=== PATIENT | female | born 1995 | race Caucasian/White ===

== ENCOUNTER 2017-01-04 18:21 | Emergency (ER) | payer MEDICAID ==
[2017-01-04 18:35] VITALS: BP 125/83
[2017-01-04] MEDS ORDERED: Lidocaine/EPINEPHrine/Tetracaine Soln 1 ML TOP ONE (19:28)
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
[2017-01-04] MEDS ORDERED: Ibuprofen 600 MG Tab PO ONE (20:23)
[2017-01-04] MEDS ORDERED: Lidocaine 1% 10 ML MDV INJECT ONE (20:24)
--- NOTE | 2017-01-06 17:59 | CR ---
Thoracic spine: AP and lateral views of the thoracic spine were obtained. Comparison: Vertebral body heights and disc spaces are preserved. Pedicles are intact. Paravertebral soft tissues are normal. No subluxation or fracture seen. Impression: 1. No abnormality is seen on two-view thoracic spine study. Diagnostic code #1
--- NOTE | 2017-01-06 17:59 | CT ---
Head CT Technique: Multiple axial sections were obtained through the brain. Intravenous contrast not utilized. Comparison: No previous intracranial imaging. Findings: Ventricles along with basal cisterns and sulci over the convexities are within normal limits for the patient's age. No abnormal parenchymal densities are seen. No evidence of intracranial hemorrhage. No midline shift or mass effect is seen. Bone window settings were reviewed which show no discrete calvarial abnormality. Visualized sinuses show a small retention cyst within the right maxillary sinus measuring 8 mm which is likely incidental. No acute calvarial abnormality is seen. Impression: 1. Small retention cyst within the right maxillary sinus which is felt to be incidental. 2. No acute intracranial abnormality is identified. Diagnostic code #2 I agree with preliminary report issued by [facility] ([facility] preliminary report dictated on 01/04/17, 9:27 PM Central Time)
--- NOTE | 2017-01-06 17:59 | CT ---
CT cervical spine Technique: Multiple axial sections through the cervical spine were obtained from above C1 inferiorly to the bottom of T2. Reconstructed sagittal and coronal images were reviewed. Comparison: No prior cervical spine imaging. Findings: Mastoid sinuses are clear. Middle ear cavities are clear. Posterior skull base is intact. Findings: Vertebral body heights and disc spaces are maintained. Vertebral bodies and posterior arches are intact. No fracture is seen. No bony central or bony neural foraminal stenosis is seen. No abnormal subluxation is seen on the reconstructed sagittal images. Impression: 1. No acute abnormality is identified on CT study of the cervical spine. Diagnostic code #1 Agree with preliminary report issued by [facility] ([facility] preliminary report dictated on 01/04/17, 9:26 PM Central Time)
== END 2017-01-04 21:38 | disposition home or self-care (01) ==
LOC: JD.ED 18:21
DX: S01.511A Laceration without foreign body of lip, initial encounter (principal); S80.12XA Contusion of left lower leg, initial encounter; S20.229A Contusion of unspecified back wall of thorax, initial encounter; K08.419 Partial loss of teeth due to trauma, unspecified class; Z91.030 Bee allergy status; Z79.899 Other long term (current) drug therapy; V19.9XXA Pedal cyclist (driver) (passenger) injured in unspecified traffic accident, initial encounter
CPT/HCPCS: 12011; 70450; 72070; 72125; 99285; A9270; 99284

== ENCOUNTER 2017-07-04 19:06 | Emergency (ER) | payer MEDICAID, OTHER ==
[2017-07-04 19:45] VITALS: BP 138/70
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
[2017-07-05] MEDS ORDERED: Acetaminophen/oxyCODONE 325-5 MG Tab PO ONE (00:09)
--- NOTE | 2017-07-05 14:23 | CR ---
Left hip: AP and frog leg lateral views of the left hip were obtained. Comparison: No previous hip exam. Joint space within the left hip is maintained. No fracture or other abnormality is identified. Impression: 1. Unremarkable two-view left hip exam. Diagnostic code #1 I agree with preliminary report issued by [facility] ([facility] report finalized on 07/05/17, 1:16 AM Central Time)
--- NOTE | 2017-07-05 14:23 | CR ---
Lumbar spine: AP, lateral and cone down lateral views centered to the lumbosacral junction were obtained. Comparison: No previous study. Vertebral body heights and disc spaces are maintained. Pedicles as well as transverse and spinous processes are intact. No subluxation or fracture is seen. Impression: 1. No abnormality is identified on three-view lumbar spine exam. Diagnostic code #1
--- NOTE | 2017-07-05 14:23 | CR ---
Pelvis: AP view of the pelvis was obtained. Comparison: No prior pelvis exam. Joint spaces within both hips are maintained. Sacroiliac joints are within normal limits. No fracture or other abnormality is seen. Impression: 1. Unremarkable AP pelvis exam. Diagnostic code #1 I agree with preliminary report issued by [facility] ([facility] report finalized on 07/05/17, 1:17 AM Central Time)
== END 2017-07-05 00:35 | disposition home or self-care (01) ==
LOC: JD.ED 19:06
DX: S39.012A Strain of muscle, fascia and tendon of lower back, initial encounter (principal); S70.02XA Contusion of left hip, initial encounter; S30.0XXA Contusion of lower back and pelvis, initial encounter; Z91.030 Bee allergy status; Z79.899 Other long term (current) drug therapy; W00.0XXA Fall on same level due to ice and snow, initial encounter
CPT/HCPCS: 72100; 72170; 73502; 99283; A9270

== ENCOUNTER 2024-11-10 12:54 | Inpatient (IN) | payer MEDICAID ==
[2024-11-10] MEDS ORDERED: Ondansetron 4 MG/2 ML SDV IVPUSH PRN (20:18)
[2024-11-10] MEDS ORDERED: Nalbuphine 10 MG/1 ML Vial IVPUSH PRN (20:18)
[2024-11-10] MEDS ORDERED: Sodium Chloride 0.9% 10 ML Syringe FLUSH PRN (20:18)
[2024-11-10] MEDS: Misoprostol 25 MCG (1/4 of 100 MCG) Tab VAG PRN (20:30)
[2024-11-10 20:49] LABS: BASOPHILS ABSOLUTE AUTO 0.0 K/mm3 (0.0-0.2); BASOPHILS PERCENT AUTO 0.2 % (0.0-1.0); EOSINOPHILS ABSOLUTE AUTO 0.2 K/mm3 (0.0-0.4); EOSINOPHILS PERCENT AUTO 1.5 % (0.0-6.0); IMMATURE GRAN ABSOLUTE AUTO 0.08 K/mm3 (0.00-0.05); IMMATURE GRAN PERCENT AUTO 0.7 % (0.0-0.4); LYMPHOCYTES ABSOLUTE AUTO 2.0 K/mm3 (1.0-4.8); LYMPHOCYTES PERCENT AUTO 18.1 % (24.0-44.0); MEAN PLATELET VOLUME 9.2 fl (9.4-12.3); MONOCYTES ABSOLUTE AUTO 0.6 K/mm3 (0.0-0.8); MONOCYTES PERCENT AUTO 5.6 % (0.0-8.0); NEUTROPHILS ABSOLUTE AUTO 8.1 K/mm3 (1.8-7.7); NEUTROPHILS PERCENT AUTO 73.9 % (41.0-71.0); NRBC ABSOLUTE 0.00 (0.00-0.02); NRBC PERCENT 0.0 % (0.0-0.2); PLATELET COUNT,PLT 193 K/mm3 (150-400); RED BLOOD CELL COUNT 3.64 M/mm3 (4.10-5.30); WHITE BLOOD CELL COUNT,WBC 10.98 K/mm3 (3.9-11.3)
[2024-11-10 21:08] LABS: ALANINE AMINOTRANSFERASE,ALT 11 U/L (14-59); ASPARTATE AMNIOTRANSFERASE,AST 12 U/L (15-37); BLOOD UREA NITROGEN,BUN 7 mg/dL (7-18); CREATININE 0.5 mg/dL (0.55-1.02); ESTIMATED GFR 131 mL/min (>60); LACTATE DEHYDROGENASE,LDH 178 U/L (81-234)
[2024-11-10 22:09] LABS: CREATININE,URINE RAND 154.3 mg/dL (30.0-125.0); PROTEIN CREATININE RATIO,URINE 158.1 mg/g (0-149); PROTEIN,URINE RANDOM 24.4 mg/dL (0.0-11.8)
[2024-11-11] MEDS: Lactated Ringers 1,000 ML IV SCH (01:08)
[2024-11-11] MEDS: Oxytocin/0.9 % Sodium Chloride 30 UNIT/500 ML BAG IV SCH ×2 (01:15→14:01)
[2024-11-11] MEDS ORDERED: diphenhydrAMINE 50 MG/ML SDV IVPUSH PRN (03:50)
[2024-11-11] MEDS ORDERED: ePHEDrine 50 MG/ML SDV IVPUSH PRN (03:50)
[2024-11-11] MEDS: Bupivacaine/fentaNYL/NS 100 ML Bag EPIDUR PRN (04:04)
[2024-11-11] MEDS: Sodium Chloride 0.9% 10 ML Syringe FLUSH SCH (10:50)
[2024-11-11] MEDS ORDERED: Oxytocin/0.9 % Sodium Chloride 30 UNIT/500 ML BAG IV SCH (14:15)
[2024-11-11] MEDS: diphenhydrAMINE 50 MG/ML SDV IVPUSH ONE (14:58)
[2024-11-11] MEDS: Benzocaine/Menthol 20%-0.5% Spray 78 GM Cannister TOP PRN (15:11)
[2024-11-11] MEDS: Witch Hazel Medicated Pads 40/Jar TOP PRN (15:11)
[2024-11-11 17:29] LABS: MEAN PLATELET VOLUME 9.3 fl (9.4-12.3); NRBC ABSOLUTE 0.00 (0.00-0.02); NRBC PERCENT 0.0 % (0.0-0.2); PLATELET COUNT,PLT 169 K/mm3 (150-400); RED BLOOD CELL COUNT 3.22 M/mm3 (4.10-5.30); WHITE BLOOD CELL COUNT,WBC 17.30 K/mm3 (3.9-11.3)
[2024-11-11 17:45] LABS: INR 0.97
[2024-11-11 17:47] LABS: PTT,PARTIAL THROMBOPLSTIN TIME 29.2 SECONDS (21.7-31.4)
[2024-11-11] MEDS ORDERED: Magnesium Hydroxide 400 MG/5 ML Susp 30 ML Cup PO PRN (21:00)
[2024-11-12 04:43] LABS: MEAN PLATELET VOLUME 9.3 fl (9.4-12.3); NRBC ABSOLUTE 0.00 (0.00-0.02); NRBC PERCENT 0.0 % (0.0-0.2); PLATELET COUNT,PLT 155 K/mm3 (150-400); RED BLOOD CELL COUNT 2.98 M/mm3 (4.10-5.30); WHITE BLOOD CELL COUNT,WBC 13.17 K/mm3 (3.9-11.3)
[2024-11-12] MEDS: Prenatal Multivitamin with Calcium/Folic Acid/Iron Tab PO SCH (08:53)
[2024-11-12 19:01] VITALS: PULSE 75
[2024-11-12 19:02] VITALS: BP 146/82
== END 2024-11-12 19:03 | disposition home or self-care (01) | DRG 806 ==
LOC: JD.OB 12:54 → OBSVTOIN 11-11 12:54 → JD.OB 11-11 12:55
PROVIDERS: ADMIT Obstetrics & Gynecology; ATTEND Obstetrics & Gynecology
PROC: 10E0XZZ Delivery of Products of Conception, External Approach (ICD-10-PCS; principal; 2024-11-11)
PROC: 0KQM0ZZ Repair Perineum Muscle, Open Approach (ICD-10-PCS; 2024-11-11)
PROC: 0U7C7DJ Dilation of Cervix with Intraluminal Device, Temporary, Via Natural or Artificial Opening (ICD-10-PCS; 2024-11-11)
PROC: 3E0P7VZ Introduction of Hormone into Female Reproductive, Via Natural or Artificial Opening (ICD-10-PCS; 2024-11-11)
PROC: 10907ZC Drainage of Amniotic Fluid, Therapeutic from Products of Conception, Via Natural or Artificial Opening (ICD-10-PCS; 2024-11-11)
PROC: 3E033VJ Introduction of Other Hormone into Peripheral Vein, Percutaneous Approach (ICD-10-PCS; 2024-11-11)
PROC: 3E0R3BZ Introduction of Anesthetic Agent into Spinal Canal, Percutaneous Approach (ICD-10-PCS; 2024-11-11)
PROC: 00HU33Z Insertion of Infusion Device into Spinal Canal, Percutaneous Approach (ICD-10-PCS; 2024-11-11)
DX: O13.4 Gestational [pregnancy-induced] hypertension without significant proteinuria, complicating childbirth (principal); O99.354 Diseases of the nervous system complicating childbirth; Z37.0 Single live birth; O99.62 Diseases of the digestive system complicating childbirth; K21.9 Gastro-esophageal reflux disease without esophagitis; G43.909 Migraine, unspecified, not intractable, without status migrainosus; O99.344 Other mental disorders complicating childbirth; F41.9 Anxiety disorder, unspecified; F32.A Depression, unspecified; O99.214 Obesity complicating childbirth; O99.02 Anemia complicating childbirth; O70.1 Second degree perineal laceration during delivery; O72.0 Third-stage hemorrhage; Z3A.37 37 weeks gestation of pregnancy
CPT/HCPCS: 36415; 51702; 59025; 59409; 82565; 82570; 83615; 84156; 84450; 84460; 84520; 84550; 85025; 85027; 85384; 85610; 85730; 86592; 86850; 86900; 86901; A9270-GY; J1200; J3490; J7120; J7999

== ENCOUNTER 2025-04-02 12:19 | Emergency (ER) | payer MEDICAID ==
[2025-04-02 12:33] VITALS: PULSE 75
[2025-04-02 14:48] VITALS: BP 145/78
== END 2025-04-02 13:32 | disposition home or self-care (01) ==
LOC: JD.ED 12:19
DX: L60.0 Ingrowing nail (principal); E66.9 Obesity, unspecified; Z91.030 Bee allergy status; Z79.899 Other long term (current) drug therapy; Z68.45 Body mass index [BMI] 70 or greater, adult
CPT/HCPCS: 99283